=== PATIENT | female | born 1945 | race Caucasian/White ===

== ENCOUNTER 2018-04-12 13:22 | Inpatient (IN) | payer MEDICARE, OTHER ==
[~2018-04-12] VITALS: Ht 157.5 cm; Wt 71.7 kg
[2018-04-12] MEDS ORDERED: ALBU0.63 IH (13:57)
[2018-04-12] MEDS ORDERED: HYDR-548 PO (13:57)
[2018-04-12] MEDS ORDERED: VALS160T2 PO (13:57)
[2018-04-12] MEDS ORDERED: ALPR0.5T8 PO (13:57)
[2018-04-12] MEDS ORDERED: TEMA30CA PO (13:57)
[2018-04-12] MEDS ORDERED: LEVO25TA2 PO (13:57)
[2018-04-12] MEDS ORDERED: ALBU6.7H INH (13:57)
[2018-04-12] MEDS ORDERED: HYDROCODONE/APAP 5-325MG TABLET PO ONE (14:45)
[2018-04-12] MEDS ORDERED: HYDROCODONE/APAP 5-325MG TABLET ONE (14:47)
[2018-04-12] MEDS ORDERED: ACETAMINOPHEN 325 MG TABLET PO PRN (16:00)
[2018-04-12] MEDS ORDERED: MAG HYDROX/AL HYDROX/SIMETH 30 ML LIQUID UDC PO PRN (16:00)
[2018-04-12 16:04] VITALS: BP 113/64
[2018-04-12 20:00] VITALS: BP 149/63
[2018-04-12] MEDS ORDERED: ALBUTEROL SULFATE 8 GM HFA.AER.AD INH PRN (20:45)
[2018-04-12] MEDS: HYDROCODONE/APAP 10-325 MG TABLET PO PRN (21:24)
[2018-04-12] MEDS ORDERED: ALBUTEROL SULFATE 2.5 MG/3 ML NEBU NEB PRN (21:30)
[2018-04-12] MEDS: TEMAZEPAM 7.5 MG CAPSULE PO PRN (22:11)
[2018-04-13] MEDS: LORAZEPAM 0.5 MG TABLET PO PRN ×5 (02:46→21:14)
[2018-04-13] MEDS: LEVOTHYROXINE SODIUM 25 MCG TABLET PO SCH (06:23)
[2018-04-13] MEDS: CLONIDINE HCL 0.1 MG TABLET PO PRN ×2 (06:26→20:18)
[2018-04-13 07:30] VITALS: BP 155/63
[2018-04-13] MEDS: VALSARTAN 160 MG TABLET PO SCH (10:11)
[2018-04-13] MEDS: HYDROCODONE/APAP 10-325 MG TABLET PO PRN ×3 (10:11→23:18)
[2018-04-13 16:00] VITALS: BP 133/66
[2018-04-13 19:54] VITALS: BP 158/74
[2018-04-13] MEDS: TEMAZEPAM 7.5 MG CAPSULE PO PRN (23:19)
[2018-04-14] MEDS: LEVOTHYROXINE SODIUM 25 MCG TABLET PO SCH (06:31)
[2018-04-14 07:30] VITALS: BP 145/64
[2018-04-14] MEDS: VALSARTAN 160 MG TABLET PO SCH ×2 (08:32→21:00)
[2018-04-14] MEDS: SERTRALINE HCL 50 MG TABLET PO SCH (08:32)
[2018-04-14] MEDS: ASPIRIN 81 MG TAB.CHEW PO SCH (12:40)
[2018-04-14 17:05] VITALS: BP 133/52
[2018-04-14 19:30] VITALS: BP 134/53
[2018-04-14] MEDS: ATORVASTATIN 20 MG TABLET PO SCH (21:00)
[2018-04-14] MEDS: PROVENTIL IH PRN (21:01)
[2018-04-14] MEDS: HYDROCODONE/APAP 10-325 MG TABLET PO PRN (21:08)
[2018-04-15] MEDS: LEVOTHYROXINE SODIUM 25 MCG TABLET PO SCH (06:39)
[2018-04-15 07:30] VITALS: BP 154/66
[2018-04-15] MEDS: ASPIRIN 81 MG TAB.CHEW PO SCH (08:39)
[2018-04-15] MEDS: VALSARTAN 160 MG TABLET PO SCH ×2 (08:40→21:24)
[2018-04-15] MEDS: HYDROCODONE/APAP 10-325 MG TABLET PO PRN (09:30)
[2018-04-15] MEDS: SERTRALINE HCL 50 MG TABLET PO SCH (10:27)
[2018-04-15] MEDS: LORAZEPAM 0.5 MG TABLET PO PRN (15:37)
[2018-04-15] MEDS: CLONIDINE HCL 0.1 MG TABLET PO PRN ×2 (15:41→15:49)
[2018-04-15 15:49] VITALS: BP 118/67
[2018-04-15 19:30] VITALS: BP 131/66
[2018-04-15] MEDS: ATORVASTATIN 20 MG TABLET PO SCH (21:00)
[2018-04-15] MEDS ORDERED: LOSARTAN POTASSIUM 50 MG TABLET PO SCH (21:00)
[2018-04-15] MEDS: DIVALPROEX 250 MG TABLET.DR PO SCH (21:12)
[2018-04-16] MEDS: HYDROCODONE/APAP 10-325 MG TABLET PO PRN ×3 (06:43→17:44)
[2018-04-16] MEDS: LEVOTHYROXINE SODIUM 25 MCG TABLET PO SCH (06:43)
[2018-04-16 07:30] VITALS: BP 132/52
[2018-04-16] MEDS: VALSARTAN 160 MG TABLET PO SCH ×2 (08:41→20:17)
[2018-04-16] MEDS: DIVALPROEX 250 MG TABLET.DR PO SCH ×2 (08:41→20:17)
[2018-04-16] MEDS: SERTRALINE HCL 50 MG TABLET PO SCH (08:42)
[2018-04-16] MEDS: ASPIRIN 81 MG TAB.CHEW PO SCH (08:43)
[2018-04-16 15:26] VITALS: BP 128/58
[2018-04-16] MEDS: MAGNESIUM HYDROXIDE 30 ML LIQUID UDC PO PRN (17:20)
[2018-04-16] MEDS: ATORVASTATIN 20 MG TABLET PO SCH (20:22)
[2018-04-16 20:29] VITALS: BP 125/72
[2018-04-17] MEDS: HYDROCODONE/APAP 10-325 MG TABLET PO PRN (05:11)
[2018-04-17] MEDS: LEVOTHYROXINE SODIUM 25 MCG TABLET PO SCH (06:49)
[2018-04-17 07:30] VITALS: BP 106/51
[2018-04-17] MEDS: VALSARTAN 160 MG TABLET PO SCH ×2 (09:00→21:00)
[2018-04-17] MEDS: ASPIRIN 81 MG TAB.CHEW PO SCH (09:32)
[2018-04-17] MEDS: DIVALPROEX 250 MG TABLET.DR PO SCH ×2 (09:32→20:30)
[2018-04-17] MEDS: SERTRALINE HCL 50 MG TABLET PO SCH (09:33)
[2018-04-17 15:13] VITALS: BP 118/46
[2018-04-17 20:00] VITALS: BP 115/45
[2018-04-17] MEDS: ATORVASTATIN 20 MG TABLET PO SCH (20:49)
[2018-04-17] MEDS: MAGNESIUM HYDROXIDE 30 ML LIQUID UDC PO PRN (21:22)
[2018-04-17] MEDS: TEMAZEPAM 7.5 MG CAPSULE PO PRN (21:45)
[2018-04-18] MEDS: HYDROCODONE/APAP 10-325 MG TABLET PO PRN ×2 (00:42→18:11)
[2018-04-18] MEDS: LEVOTHYROXINE SODIUM 25 MCG TABLET PO SCH (07:17)
[2018-04-18 07:30] VITALS: BP_SYST 132; BP_SYST 161; BP_DIAS 59; BP_DIAS 67
[2018-04-18] MEDS: SERTRALINE HCL 50 MG TABLET PO SCH (08:00)
[2018-04-18] MEDS: VALSARTAN 160 MG TABLET PO SCH ×2 (08:01→20:13)
[2018-04-18] MEDS: ASPIRIN 81 MG TAB.CHEW PO SCH (08:02)
[2018-04-18] MEDS: DIVALPROEX 250 MG TABLET.DR PO SCH ×2 (08:03→20:13)
[2018-04-18 15:10] VITALS: BP 156/66
[2018-04-18] MEDS: CLONIDINE HCL 0.1 MG TABLET PO PRN (17:01)
[2018-04-18 20:00] VITALS: BP 131/57
[2018-04-18] MEDS: ATORVASTATIN 20 MG TABLET PO SCH (20:31)
[2018-04-18] MEDS ORDERED: DIVALPROEX 500 MG TABLET.DR PO SCH (21:00)
[2018-04-18] MEDS ORDERED: DIVALPROEX 250 MG TABLET.DR PO SCH (21:00)
[2018-04-18] MEDS: TEMAZEPAM 7.5 MG CAPSULE PO PRN (23:02)
[2018-04-19] MEDS: MAGNESIUM HYDROXIDE 30 ML LIQUID UDC PO PRN ×2 (00:25→15:33)
[2018-04-19] MEDS: LEVOTHYROXINE SODIUM 25 MCG TABLET PO SCH (06:45)
[2018-04-19 07:30] VITALS: BP 166/64
[2018-04-19 07:46] LABS: BASOPHILS % (AUTO) 0.6 % (0.0-2.0); EOSINOPHILS # (AUTO) 0.5 K/uL (0.0-0.7); EOSINOPHILS % (AUTO) 10.4 % (0.0-7.0); HEMATOCRIT 38.6 % (31.2-41.9); HEMOGLOBIN 13.5 g/dL (10.9-14.3); LYMPHOCYTES # (AUTO) 1.6 K/uL (20.0-40.0); LYMPHOCYTES % (AUTO) 33.5 % (20.5-51.5); MEAN CORPUSCULAR HGB CONC 35 g/dL (32.3-35.6); MEAN CORPUSCULAR VOLUME 91.5 fL (75.5-95.3); MONOCYTES # (AUTO) 0.6 K/uL (2.0-10.0); MONOCYTES % (AUTO) 13.3 % (0.0-11.0); NEUTROPHILS % (AUTO) 42.2 % (38.5-71.5); PLATELET COUNT (AUTO) 195 K/uL (179-408); RED BLOOD CELL COUNT(AUTO) 4.21 MIL/uL (3.63-4.92); WHITE BLOOD COUNT (AUTO) 4.7 K/uL (3.8-11.8)
[2018-04-19 07:59] LABS: ALANINE AMINOTRANSFERASE 41 U/L (14-59); ALKALINE PHOSPHATASE 36 U/L (50-136); ASPARTATE AMINOTRANSFERASE 30 U/L (15-37); BILIRUBIN,TOTAL 0.4 mg/dL (0.2-1.0); CARBON DIOXIDE 33 mmol/L (21-32); CHLORIDE 105 mmol/L (98-107); CREATININE 0.9 mg/dL (0.6-1.3); GLUCOSE 93 mg/dL (74-106); POTASSIUM 3.9 mmol/L (3.5-5.1); TOTAL PROTEIN, SERUM 6.7 g/dL (6.4-8.2); UREA NITROGEN, BLOOD 21 mg/dL (7-18); VALPROIC ACID 50 ug/mL (50-100)
[2018-04-19] MEDS ORDERED: DIVALPROEX 125 MG TABLET.DR PO SCH (09:00)
[2018-04-19] MEDS: DIVALPROEX 125 MG TABLET.DR PO SCH ×2 (09:12→20:16)
[2018-04-19] MEDS: SERTRALINE HCL 50 MG TABLET PO SCH (09:12)
[2018-04-19] MEDS: ASPIRIN 81 MG TAB.CHEW PO SCH (09:12)
[2018-04-19] MEDS: VALSARTAN 160 MG TABLET PO SCH ×2 (09:13→20:10)
[2018-04-19] MEDS: HYDROCODONE/APAP 10-325 MG TABLET PO PRN (11:46)
[2018-04-19 14:54] LABS: *BILIRUBIN,URIN NEGATIVE (NEGATIVE); *BLOOD, URINE NEGATIVE (NEGATIVE); *CLARITY,URINE SLIGHTLY CLOUDY (CLEAR); *COLOR,URINE YELLOW (YELLOW); *KETONES,URINE NEGATIVE (NEGATIVE); *PROTEIN,URINE NEGATIVE (NEGATIVE); *UROBILINOGEN,URINE 0.2 E.U./dl (NORMAL); LEUKOCYTE ESTERASE ,URINE NEGATIVE (NEGATIVE); NITRITE, URINE NEGATIVE (NEGATIVE); PH,URINE 7.5 (5.0-8.0); UGLUCOSE NEGATIVE (NEGATIVE)
[2018-04-19 15:10] LABS: BACTERIA,URINE NONE SEEN /HPF (NONE SEEN); RBC,URINE 0-3 /HPF (0-3); SQUAMOUS EPITHELIAL CELL,UR FEW /HPF (NONE SEEN); URINE AMORPHOUS PHOSPHATES MODERATE /HPF; WBC,URINE 0-3 /HPF (0-3)
[2018-04-19 15:33] VITALS: BP 122/51
[2018-04-19 20:00] VITALS: BP 151/63
[2018-04-19] MEDS: DIVALPROEX 250 MG TABLET.DR PO SCH (20:01)
[2018-04-19] MEDS: ATORVASTATIN 20 MG TABLET PO SCH (20:11)
[2018-04-19] MEDS ORDERED: DIVALPROEX 250 MG TABLET.DR PO SCH (21:00)
[2018-04-19] MEDS: TEMAZEPAM 7.5 MG CAPSULE PO PRN (22:35)
[2018-04-20] MEDS: LEVOTHYROXINE SODIUM 25 MCG TABLET PO SCH (06:35)
[2018-04-20 07:30] VITALS: BP 144/76
[2018-04-20] MEDS: SERTRALINE HCL 50 MG TABLET PO SCH (08:34)
[2018-04-20] MEDS: ASPIRIN 81 MG TAB.CHEW PO SCH (08:34)
[2018-04-20] MEDS: DIVALPROEX 125 MG TABLET.DR PO SCH (08:34)
[2018-04-20] MEDS: VALSARTAN 160 MG TABLET PO SCH ×2 (08:39→21:08)
[2018-04-20] MEDS: MAGNESIUM HYDROXIDE 30 ML LIQUID UDC PO PRN (11:32)
[2018-04-20] MEDS: HYDROCODONE/APAP 10-325 MG TABLET PO PRN (11:33)
[2018-04-20 16:41] VITALS: BP 111/56
[2018-04-20] MEDS: DIVALPROEX 250 MG TABLET.DR PO SCH (17:12)
[2018-04-20 19:48] VITALS: BP 147/69
[2018-04-20] MEDS: ATORVASTATIN 20 MG TABLET PO SCH (21:00)
[2018-04-20] MEDS: TEMAZEPAM 7.5 MG CAPSULE PO PRN (22:32)
[2018-04-21] MEDS: HYDROCODONE/APAP 10-325 MG TABLET PO PRN ×2 (06:17→15:04)
[2018-04-21] MEDS: LEVOTHYROXINE SODIUM 25 MCG TABLET PO SCH (06:17)
[2018-04-21 07:30] VITALS: BP 171/75
[2018-04-21] MEDS: VALSARTAN 160 MG TABLET PO SCH ×2 (08:07→20:03)
[2018-04-21] MEDS: SERTRALINE HCL 50 MG TABLET PO SCH (08:07)
[2018-04-21] MEDS: ASPIRIN 81 MG TAB.CHEW PO SCH (08:07)
[2018-04-21] MEDS: DIVALPROEX 250 MG TABLET.DR PO SCH ×3 (08:07→16:47)
[2018-04-21 10:00] VITALS: BP 139/88
[2018-04-21 16:39] VITALS: BP 139/58
[2018-04-21] MEDS: PROVENTIL IH PRN (16:50)
[2018-04-21 20:00] VITALS: BP 168/61
[2018-04-21] MEDS: TEMAZEPAM 7.5 MG CAPSULE PO PRN (20:03)
[2018-04-21] MEDS: ATORVASTATIN 20 MG TABLET PO SCH (20:04)
[2018-04-22] MEDS: LEVOTHYROXINE SODIUM 25 MCG TABLET PO SCH (06:31)
[2018-04-22] MEDS: ASPIRIN 81 MG TAB.CHEW PO SCH (08:06)
[2018-04-22] MEDS: DIVALPROEX 250 MG TABLET.DR PO SCH (08:06)
[2018-04-22] MEDS: SERTRALINE HCL 50 MG TABLET PO SCH (08:06)
[2018-04-22] MEDS: VALSARTAN 160 MG TABLET PO SCH (08:06)
[2018-04-22] MEDS: HYDROCODONE/APAP 10-325 MG TABLET PO PRN (08:48)
[2018-04-22 09:54] VITALS: BP 177/61
[2018-04-22] MEDS: CLONIDINE HCL 0.1 MG TABLET PO PRN (09:54)
== END 2018-04-22 10:45 | disposition home or self-care (01) | DRG 881 ==
LOC: ER 13:22 → GPS 15:26
PROVIDERS: ADMIT Psychiatry & Neurology Psychiatry; ATTEND Nurse Practitioner Acute Care
DX: F32.9 Major depressive disorder, single episode, unspecified (principal); G89.4 Chronic pain syndrome; E66.9 Obesity, unspecified; Z68.29 Body mass index [BMI] 29.0-29.9, adult; F41.9 Anxiety disorder, unspecified; E03.9 Hypothyroidism, unspecified; Z79.51 Long term (current) use of inhaled steroids; I10 Essential (primary) hypertension; M47.9 Spondylosis, unspecified; E78.5 Hyperlipidemia, unspecified; J45.909 Unspecified asthma, uncomplicated; T42.4X2D Poisoning by benzodiazepines, intentional self-harm, subsequent encounter; Z90.49 Acquired absence of other specified parts of digestive tract
CPT/HCPCS: 36415; 71045; 80164; 85025; 87086; 93005; 94664; A4663; J3490